=== PATIENT | female | born 1940 | race Caucasian/White ===

== ENCOUNTER → 2017-06-25 09:03 | Outpatient (CLI) | payer MEDICARE, BC, SELFPAY ==
[2017-06-25 10:42] LABS: Vitamin D,25 Hydroxy 28.6 ng/mL (29.95-100.01)
[2017-06-25 11:16] LABS: ALB/GLOB Ratio 0.7 RATIO (0.9-2.4); AST(SGOT) 20 U/L (15-37); Alanine Aminotransfer ALT/SGPT 17 U/L (13-56); Albumin, Serum 3.3 g/dL (3.2-5.0); Alkaline Phosphatase 60 U/L (45-117); Anion Gap 9 (5-15); BUN 12 mg/dL (7-18); BUN/Creat Ratio 14.5 RATIO (10-20); Calcium,Total 8.7 mg/dL (8.5-10.1); Chloride 107 mmol/L (98-107); Creatinine, Serum 0.82 mg/dL (0.55-1.02); EST Glomerular Filtration Rate 71 mL/min (>60); Est Glom Filt Rate - Afr Amer 86 mL/min (>60); Glucose 92 mg/dL (74-106); Protein, Total 8.3 g/dL (6.4-8.2); Sodium Level 139 mmol/L (136-145); T4 Free Direct 1.05 ng/dL (0.76-1.46); Thyroid Stim Hormone (TSH) 0.96 uIU/mL (0.358-3.74)
== END ==
PROVIDERS: Family Provider Family Medicine; PCP Family Medicine; Visit Provider Family Medicine
DX: E78.00 Pure hypercholesterolemia, unspecified (principal); E03.9 Hypothyroidism, unspecified; E55.9 Vitamin D deficiency, unspecified
CPT/HCPCS: 36415; 80053; 82306; 84439; 84443

== ENCOUNTER → 2018-01-18 09:19 | Outpatient (CLI) | payer MEDICARE, BC, SELFPAY ==
[2018-01-18 10:35] LABS: Anion Gap 8 (5-15); BUN 13 mg/dL (7-18); BUN/Creat Ratio 15.5 RATIO (10-20); Calcium,Total 8.7 mg/dL (8.5-10.1); Chloride 107 mmol/L (98-107); Cholesterol 187 mg/dL (200); Creatinine, Serum 0.84 mg/dL (0.55-1.02); EST Glomerular Filtration Rate 70 mL/min (>60); Est Glom Filt Rate - Afr Amer 85 mL/min (>60); Glucose 86 mg/dL (74-106); High Density Lipoprotein 57 mg/dL; Potassium 3.9 mmol/L (3.5-5.1); Sodium Level 141 mmol/L (136-145); Thyroid Stim Hormone (TSH) 0.76 uIU/mL (0.358-3.74); Triglycerides 108 mg/dL; Very Low Density Lipoprotein 22 mg/dL (5-40)
== END ==
PROVIDERS: Family Provider Family Medicine; PCP Family Medicine; Visit Provider Family Medicine
DX: E03.9 Hypothyroidism, unspecified (principal); E78.00 Pure hypercholesterolemia, unspecified; F03.90 Unspecified dementia, unspecified severity, without behavioral disturbance, psychotic disturbance, mood disturbance, and anxiety
CPT/HCPCS: 36415; 80048; 80061; 84443

== ENCOUNTER → 2018-09-26 08:05 | Outpatient (CLI) | payer MEDICARE, BC, SELFPAY ==
[2018-09-26 10:10] LABS: Hematocrit 41.9 % (37-47); Hemoglobin 13.3 g/dl (12.0-15.0); Mean Corp Hgb Conc 31.7 g/gl (32-36); Mean Corpuscular Hgb 27.8 pg (27.0-32.0); Mean Corpuscular Volume 87.7 fL (81-99); Mean Platelet Vol. 10.9 fl (6.2-12.0); Platelet Count 272 K/mm3 (150-450); RBC Distribution Width CV 15.9 % (11.6-14.6); RBC Distribution Width SD 51.4 fl (35.1-43.9); Red Blood Count 4.78 M/mm3 (4.2-5.4); White Blood Count 5.4 K/mm3 (4.4-11.0)
[2018-09-26 10:12] LABS: Scan Indicated on CBC? Y/N NO
[2018-09-26 10:40] LABS: Anion Gap 5 (5-15); BUN 11 mg/dL (7-18); BUN/Creat Ratio 13.2 RATIO (10-20); Calcium,Total 8.8 mg/dL (8.5-10.1); Chloride 106 mmol/L (98-107); Creatinine, Serum 0.84 mg/dL (0.55-1.02); EST Glomerular Filtration Rate 70 mL/min (>60); Est Glom Filt Rate - Afr Amer 85 mL/min (>60); Glucose 79 mg/dL (74-106); Potassium 4.4 mmol/L (3.5-5.1); Sodium Level 138 mmol/L (136-145); Thyroid Stim Hormone (TSH) 1.16 uIU/mL (0.358-3.74)
== END ==
PROVIDERS: Family Provider Family Medicine; PCP Family Medicine; Referring Provider Family Medicine; Visit Provider Family Medicine
DX: E03.9 Hypothyroidism, unspecified (principal); K21.9 Gastro-esophageal reflux disease without esophagitis; F03.90 Unspecified dementia, unspecified severity, without behavioral disturbance, psychotic disturbance, mood disturbance, and anxiety
CPT/HCPCS: 36415; 80048; 84443; 85027

== ENCOUNTER → 2018-11-21 14:11 | Outpatient (CLI) | payer MEDICARE, BC, SELFPAY ==
--- NOTE | 2018-11-21 14:16 | BI_ITS ---
MAMMOGRAPHY - BILATERAL SCREENING REASON FOR EXAM: Female, 78 years old. Routine annual screening examination. PERTINENT HISTORY: Non-contributory. TECHNIQUE: Digital bilateral breast meryl (3D mammographic acquisition) in the CC and MLO projections. 2-D mediolateral oblique (MLO) and craniocaudad (CC) views of both breasts were obtained. CAD: Full Field Digital Mammography with Computer Added Detection was performed. COMPARISON: Comparison is made with prior study dated March 13, 2016 and February 24, 2015. FINDINGS: Breast Composition: There are scattered areas of fibroglandular density. There are no dominant masses or suspicious calcifications. No other significant abnormalities are identified. There has been no significant change since the prior study. BI/SCREEN MAMM (CAD) W/MERYL BILAT IMPRESSION: Stable bilateral screening mammogram. Yearly follow-up mammogram recommended. (A) ASSESSMENT CATEGORY: BIRADS Category 1: Negative. A letter regarding these results will be sent to the patient by the facility within 30 days. Approximately 10% of breast cancers are not detected by mammography. A normal mammogram should not delay biopsy of a clinically suspicious abnormality. [id number] Electronically Signed: Santiago Jean, at 8:23 EDT , Service support ,
--- NOTE | 2018-11-21 14:17 | BD_ITS ---
STUDY: DUAL ENERGY X-RAY ABSORPTIOMETRY / DXA REASON FOR EXAM: Female, 78 years old. The patient is postmenopausal. Loss of height. TECHNIQUE: Bone Mineral Density (BMD) measurements of lumbar spine and bilateral hips were obtained. COMPARISON: Comparison is made with prior study dated August 17, 2016. FINDINGS: Lumbar Spine (L1-L4): g/cm2 (1.272) / T-score (0.6) / Z-score (2.4) Findings are suggestive of normal bone density with a low fracture risk. Increased kyphosis. Left Femur Total: g/cm2 (0.740) / T-score (-2.1) / Z-score (-0.1) Left Femoral Neck: g/cm2 (0.790) / T-score (-1.8) / Z-score (0.3) Right Femur Total: g/cm2 (0.756) / T-score (-2.0) / Z-score (0.0) Right Femoral Neck: g/cm2 (0.801) / T-score (-1.7) / Z-score (0.4) The T-Scores on the most recent prior examination were: Lumbar Spine (L1-L4): There has been worsening of bone density since the previous examination. Left Femur Total: which represents a worsening of 6.7%. Right Femur Total: which represents a worsening of 9.8%. BD/Dexa Bone Density Study IMPRESSION: The patient is considered osteopenic as outlined below according to World Brad Organization (WHO) criteria with a high fracture risk. There has been worsening of bone density since the previous examination. Reference Information: The T-score is the number of standard deviations above or below the standard which is normal for young adults at their peak bone mineral density. The World Health Organization (WHO) interprets the T-scores as follows: Above -1 Normal bone density Between -1 and -2.5 Osteopenia Equal to / or below -2.5 Osteoporosis As a practical clinical guideline, osteopenia may be graded as follows: Mild -1 through -1.5 Moderate -1.6 through -2.0 Severe -2.1 through -2.4 The Z-score is the number of standard deviations above or below age-matched controls. A Z-score of less than -1.5 would be considered abnormal. References: 1. NIH Osteoporosis and Related Bone Diseases http://www.osteo.org 2. International Society for Clinical Densitometry http://www.iscd.org 3. National Osteoporosis Foundation http://www.nof.org Electronically Signed: Santiago Jean, at 14:27 EDT , Service support ,
== END ==
PROVIDERS: Family Provider Family Medicine; PCP Family Medicine; Referring Provider Family Medicine; Visit Provider Family Medicine
DX: Z12.31 Encounter for screening mammogram for malignant neoplasm of breast (principal); Z78.0 Asymptomatic menopausal state; M81.0 Age-related osteoporosis without current pathological fracture
CPT/HCPCS: 77063; 77067; 77080

== ENCOUNTER → 2019-10-15 10:15 | Outpatient (CLI) | payer MEDICARE, BC, SELFPAY ==
[2019-03-14 15:22] VITALS: BMI 20.5
[2019-10-15 12:58] LABS: Vitamin D,25 Hydroxy 88.4 ng/mL
[2019-10-15 13:02] LABS: Anion Gap 5 (5-15); BUN 12 mg/dL (7-18); BUN/Creat Ratio 14.6 RATIO (10-20); Calcium,Total 9.4 mg/dL (8.5-10.1); Chloride 106 mmol/L (98-107); Cholesterol 212 mg/dL (200); Creatinine, Serum 0.82 mg/dL (0.55-1.02); EST Glomerular Filtration Rate 71 mL/min (>60); Est Glom Filt Rate - Afr Amer 86 mL/min (>60); Glucose 87 mg/dL (74-106); High Density Lipoprotein 54 mg/dL; Sodium Level 139 mmol/L (136-145); Thyroid Stim Hormone (TSH) 0.97 uIU/mL (0.358-3.74); Triglycerides 117 mg/dL; Very Low Density Lipoprotein 23 mg/dL (5-40)
== END ==
PROVIDERS: PCP Family Medicine; Visit Provider Family Medicine
DX: E78.00 Pure hypercholesterolemia, unspecified (principal); E03.9 Hypothyroidism, unspecified; E55.9 Vitamin D deficiency, unspecified; M81.0 Age-related osteoporosis without current pathological fracture
CPT/HCPCS: 36415; 80048; 80061; 82306; 84443

== ENCOUNTER → 2020-04-08 09:25 | Outpatient (CLI) | payer MEDICARE, BC, SELFPAY ==
[2019-03-14 15:22] VITALS: BMI 20.5
[2020-04-08 11:12] LABS: PTHIN 33.9 pg/mL (18.4-80.1)
[2020-04-08 11:16] LABS: Vitamin D,25 Hydroxy 71.6 ng/mL
[2020-04-08 11:21] LABS: ALB/GLOB Ratio 0.7 RATIO (0.9-2.4); AST(SGOT) 11 U/L (15-37); Alanine Aminotransfer ALT/SGPT 16 U/L (13-56); Albumin, Serum 3.6 g/dL (3.2-5.0); Alkaline Phosphatase 75 U/L (45-117); Anion Gap 6 (5-15); BUN 14 mg/dL (7-18); BUN/Creat Ratio 16.3 RATIO (10-20); Calcium,Total 9.5 mg/dL (8.5-10.1); Chloride 105 mmol/L (98-107); Cholesterol 204 mg/dL (200); Creatinine, Serum 0.86 mg/dL (0.55-1.02); EST Glomerular Filtration Rate 67 mL/min (>60); Est Glom Filt Rate - Afr Amer 81 mL/min (>60); Glucose 88 mg/dL (74-106); High Density Lipoprotein 54 mg/dL; Magnesium 2.3 mg/dL (1.6-2.6); Phosphorus 3.4 mg/dL (2.5-4.9); Protein, Total 8.6 g/dL (6.4-8.2); Sodium Level 139 mmol/L (136-145); Thyroid Stim Hormone (TSH) 1.42 uIU/mL (0.358-3.74); Triglycerides 120 mg/dL; Very Low Density Lipoprotein 24 mg/dL (5-40)
== END ==
PROVIDERS: PCP Family Medicine; Referring Provider Family Medicine; Visit Provider Family Medicine
DX: M81.0 Age-related osteoporosis without current pathological fracture (principal); E78.00 Pure hypercholesterolemia, unspecified; E03.9 Hypothyroidism, unspecified; E55.9 Vitamin D deficiency, unspecified
CPT/HCPCS: 36415; 80053; 80061; 82306; 82330; 83735; 83970; 84100; 84443

== ENCOUNTER → 2020-04-14 09:04 | Outpatient (CLI) | payer MEDICARE, BC, SELFPAY ==
[2019-03-14 15:22] VITALS: BMI 20.5
== END ==
PROVIDERS: PCP Family Medicine; Referring Provider Family Medicine; Visit Provider Family Medicine
DX: E88.09 Other disorders of plasma-protein metabolism, not elsewhere classified (principal)
CPT/HCPCS: 36415; 84165; 84166

== ENCOUNTER → 2020-05-03 | Outpatient (CLI) | payer MEDICARE, BC, SELFPAY ==
[2019-03-14 15:22] VITALS: BMI 20.5
[2020-05-05 16:09] LABS: PROELU- Albumin, Urine 43.5 % (.); PROELU- Alpha-1-Globulin,Ur 4.9 % (.); PROELU- Alpha-2-Globulin,Ur 12.3 % (.); PROELU- Beta Globulin, Ur 21.9 % (.); PROELU- Gamma Globulin, Ur 17.4 % (.); Total Protein, Ur 7.3 mg/dL (Not Estab.)
== END | disposition home or self-care (01) ==
LOC: LABSPEC 10:20
PROVIDERS: PCP Family Medicine; Referring Provider Family Medicine; Visit Provider Family Medicine
DX: R77.9 Abnormality of plasma protein, unspecified (principal)
CPT/HCPCS: 84166

== ENCOUNTER → 2020-11-23 10:28 | Outpatient (CLI) | payer MEDICARE, BC, SELFPAY ==
[2019-03-14 15:22] VITALS: BMI 20.5
--- NOTE | 2020-11-23 10:35 | BD_ITS ---
STUDY: DUAL ENERGY X-RAY ABSORPTIOMETRY / DXA REASON FOR EXAM: Female, 80 years old. [id number]. Patient is postmenopausal. TECHNIQUE: Bone Mineral Density (BMD) measurements of lumbar spine and bilateral hips were obtained. COMPARISON: Comparison is made with prior examination 11/21/2018. FINDINGS: Lumbar Spine (L1-L4): g/cm2 (0.956) / T-score (-0.8) / Z-score (1.9) Findings are suggestive of normal bone density with a low fracture risk. Left Femur Total: g/cm2 (0.658) / T-score (-2.3) / Z-score (-0.2) Left Femoral Neck: g/cm2 (0.593) / T-score (-2.3) / Z-score (0.1) Right Femur Total: g/cm2 (0.659) / T-score (-2.3) / Z-score (-0.2) Right Femoral Neck: g/cm2 (0.624) / T-score (-2.0) / Z-score (0.3) The T-Scores on the most recent prior examination were: Lumbar Spine (L1-L4): There has been worsening of bone density since the previous examination. Left Femur Total: which represents a worsening of 3.4%. Right Femur Total: which represents a worsening of 5.5%. BD/Dexa Bone Density Study IMPRESSION: The patient is considered osteopenic as outlined below according to World Brad Organization (WHO) criteria with a high fracture risk. There has been worsening of bone density since the previous examination. Reference Information: The T-score is the number of standard deviations above or below the standard which is normal for young adults at their peak bone mineral density. The World Health Organization (WHO) interprets the T-scores as follows: Above -1 Normal bone density Between -1 and -2.5 Osteopenia Equal to / or below -2.5 Osteoporosis As a practical clinical guideline, osteopenia may be graded as follows: Mild -1 through -1.5 Moderate -1.6 through -2.0 Severe -2.1 through -2.4 The Z-score is the number of standard deviations above or below age-matched controls. A Z-score of less than -1.5 would be considered abnormal. References: 1. NIH Osteoporosis and Related Bone Diseases www osteo.org 2. International Society for Clinical Densitometry www iscd.org 3. National Osteoporosis Foundation www nof.org Electronically Signed: Santiago Jean MD at 10:04 EDT , Service support ,
== END ==
PROVIDERS: PCP Family Medicine; Visit Provider Family Medicine
DX: M80.08XA Age-related osteoporosis with current pathological fracture, vertebra(e), initial encounter for fracture (principal); Z78.0 Asymptomatic menopausal state
CPT/HCPCS: 77080

== ENCOUNTER → 2021-04-19 09:20 | Outpatient (CLI) | payer MEDICARE, BC, SELFPAY ==
[2021-04-19 12:50] LABS: PTHIN 32.4 pg/mL (18.4-80.1)
[2021-04-19 12:53] LABS: Vitamin D,25 Hydroxy 76.1 ng/mL
[2021-04-19 13:04] LABS: Anion Gap 9 (5-15); BUN 14 mg/dL (7-18); BUN/Creat Ratio 17.5 RATIO (10-20); Calcium,Total 9.4 mg/dL (8.5-10.1); Chloride 102 mmol/L (98-107); EST Glomerular Filtration Rate 73 mL/min (>60); Est Glom Filt Rate - Afr Amer 88 mL/min (>60); Glucose 92 mg/dL (74-106); Magnesium 2.6 mg/dL (1.6-2.6); Phosphorus 2.9 mg/dL (2.5-4.9); Potassium 4.4 mmol/L (3.5-5.1); Sodium Level 136 mmol/L (136-145); Thyroid Stim Hormone (TSH) 0.91 uIU/mL (0.358-3.74)
== END ==
PROVIDERS: PCP Family Medicine; Visit Provider Family Medicine
DX: M80.08XA Age-related osteoporosis with current pathological fracture, vertebra(e), initial encounter for fracture (principal)
CPT/HCPCS: 36415; 80048; 82306; 83735; 83970; 84100; 84443

== ENCOUNTER → 2021-10-25 | Outpatient (CLI) | payer MEDICARE, BC, SELFPAY ==
[2021-10-25 12:47] LABS: Anion Gap 4 (5-15); BUN 15 mg/dL (7-18); Calcium,Total 9.1 mg/dL (8.5-10.1); Chloride 102 mmol/L (98-107); Cholesterol 197 mg/dL (200); Creatinine, Serum 0.88 mg/dL (0.55-1.02); EST Glomerular Filtration Rate 65 mL/min (>60); Est Glom Filt Rate - Afr Amer 79 mL/min (>60); Glucose 116 mg/dL (74-106); High Density Lipoprotein 55 mg/dL; Potassium 4.3 mmol/L (3.5-5.1); Sodium Level 136 mmol/L (136-145); Thyroid Stim Hormone (TSH) 1.01 uIU/mL (0.358-3.74); Triglycerides 103 mg/dL; Very Low Density Lipoprotein 21 mg/dL (5-40)
[2021-10-25 12:50] LABS: Vitamin D,25 Hydroxy 75.3 ng/mL
== END | disposition home or self-care (01) ==
LOC: MFPLAB 10:14
PROVIDERS: PCP Family Medicine; Visit Provider Family Medicine
DX: F03.90 Unspecified dementia, unspecified severity, without behavioral disturbance, psychotic disturbance, mood disturbance, and anxiety (principal); M80.08XA Age-related osteoporosis with current pathological fracture, vertebra(e), initial encounter for fracture; X58.XXXA Exposure to other specified factors, initial encounter; E78.00 Pure hypercholesterolemia, unspecified; E03.9 Hypothyroidism, unspecified
CPT/HCPCS: 36415; 80048; 80061; 82306; 84443

== ENCOUNTER → 2022-05-23 | Outpatient (CLI) | payer MEDICARE, BC, SELFPAY ==
[2022-05-23 15:50] LABS: Mucous, Urine 0 SEEN /hpf (<or=2+); Red Blood Cells-Urine 0 SEEN /hpf (0-5); Squamous Epithelial Cells - UA 0 SEEN /hpf (5-10)
[2022-05-23 18:32] LABS: Color, Urine Yellow (Yellow); Glucose, Dipstick Normal (Normal); Ketone-Dipstick Negative (Negative); Leukocyte Esterase-Dipstick 500 /ul (Negative); Nitrite-Dipstick Negative (Negative); Occult Blood-Urine 50 /ul (Negative); Protein-Dipstick 30 mg/dl (Negative); Specific Gravity, Urine 1.025 (1.002-1.030); Urine Bilirubin Dipstick Negative (Negative); Urine Clarity Cloudy (Clear); Urine Urobilinogen Normal (Normal)
[2022-05-23 18:59] LABS: White Blood Cells >100 SEEN /hpf (0-5)
[2022-05-23 19:00] LABS: Bacteria 2+ /hpf (None Seen)
== END | disposition home or self-care (01) ==
LOC: MFPLAB 15:14 → LABSPEC 15:14
PROVIDERS: PCP Family Medicine; Referring Provider Family Medicine; Visit Provider Family Medicine
DX: R30.0 Dysuria (principal)
CPT/HCPCS: 81001; 87077; 87086; 87088; 87186

== ENCOUNTER 2023-01-24 19:12 | Emergency (ER) | payer MEDICARE, BC, SELFPAY ==
[2023-01-24 19:13] VITALS: BP 131/63; PULSE 83; RESP 23; TEMP 36.3; O2SAT 94; BMI 15.3
[2023-01-24 19:21] VITALS: BP 131/63; PULSE 88; RESP 25; O2SAT 95
--- NOTE | 2023-01-24 20:05 | EDS_ITS ---
HPI History of Present Illness Chief Complaint: Chest Pain Informant: patient and spouse/S.O. Onset/Context/Timing Onset: Today Activity at onset: gradual Timing: Intermittent Quality: Positive for Heaviness Location: Substernal Worsened By: Nothing Relieved By: Nothing Associated Symptoms: Positive for Dyspnea; Negative for Nausea, Vomiting, Diaphoresis, Cough, Fever, Lightheadedness, Acid Reflux or Palpitations Narrative Narrative: Patient presents with chest pain that began today. Patient has a history of dementia and is a poor informant. states patient was complaining of pain in her chest that felt more like a heaviness and pressure. states the patient reported that it felt like someone was sitting on her chest. Currently, patient denies any pain or pressure. states patient did have some shortness of breath when this was occurring. Patient denies any nausea or vomiting. Patient denies any diaphoresis. Patient denies any cough or fevers. states that he gave the patient Laura that had aspirin and it and her pain got better after this. CVD Risk Factors: Negative for Hypertension, Diabetes, Hypercholesterolemia, Family History 1' </=55 or Smoking PE Risk Factors: Negative for Recent Travel/Surgery, Recent Immobilization, Prior DVT or PE, Cancer or OCP + Smoking + >/=35 PFSH PFSH Medical History (Updated 01/24/23 @ 23:[address] Vince Ronquillo DO) Dementia Hypothyroidism Medical History no medical history Home Medications ezetimibe 10 mg tablet (Zetia) 10 mg PO DAILY CHOLESTOROL 07/08/16 [History Last Taken Unknown] levothyroxine 75 mcg tablet (Synthroid) 40 mcg PO TUTHSA THYROID 07/08/16 [History Last Taken Unknown] levothyroxine 75 mcg tablet (Synthroid) 75 mcg PO SUMOWEFR THYROID 07/08/16 [History Last Taken Unknown] Allergy/AdvReac Type Severity Reaction Status Date / Time No Known Allergies Allergy Verified 03/14/19 15:22 Social History Smoking Status: Never smoker ROS ROS ED Constitutional Constitutional ED: Denies chills or fever(s) Eyes Eyes: Denies blurry vision or change in vision ENT ENT ED: Denies rhinorrhea or sore throat Cardiovascular Cardiovascular: Reports chest pain; Denies palpitations Respiratory/Chest Respiratory/Chest: Reports dyspnea; Denies cough Gastrointestinal Gastrointestinal: Denies abdominal pain, nausea or vomiting Genitourinary Genitourinary ED: Denies dysuria or hematuria Musculoskeletal Musculoskeletal: Denies back pain or neck pain Integumentary Denies abscess or rash Neurologic Neurologic: Denies headache(s) or weakness Allergic/Immunologic Allergic/Immunologic ED: Denies mouth swelling or urticaria EXAM Physical Exam Const Vital Signs: 01/24/23 19:13 01/24/23 19:13 01/24/23 19:21 Temperature 97.3 F L Temperature Source Temporal Pulse Rate 83 88 Respiratory Rate 23 H 25 H Respiratory Effort Normal Blood Pressure 131/63 H 131/63 H Blood Pressure Mean 85 85 Pulse Ox 94 95 Oxygen Delivery Method Room Air Room Air 01/24/23 20:36 01/24/23 20:36 01/24/23 21:21 Temperature Temperature Source Pulse Rate 96 94 Respiratory Rate 25 H 16 Respiratory Effort Blood Pressure 134/76 H 132/104 H Blood Pressure Mean 95 113 Pulse Ox 92 92 96 Oxygen Delivery Method Room Air Room Air Room Air 01/24/23 22:57 Temperature Temperature Source Pulse Rate 99 Respiratory Rate 22 H Respiratory Effort Blood Pressure 112/66 Blood Pressure Mean 81 Pulse Ox 95 Oxygen Delivery Method Room Air Positive well nourished and well developed General Appearance ED: well developed and NAD HEENT normocephalic and atraumatic Eyes PERRL and EOMs intact bilaterally Neck supple and no JVD Chest Wall palpation of chest normal Resp normal respiratory effort and clear to auscultation bilaterally Effort and Inspection: Negative for respiratory distress Cardio regular rate and regular rhythm GI normal to inspection, nondistended, normoactive bowel sounds, soft to palpation, non-tender and non-distended Extremity normal to inspection General Extremety ED: Negative for edema or tenderness General Extremity: Negative for edema Neuro CN's II-XII intact bilaterally and no sensory deficits noted Sensorium / Orientation: awake and alert Motor Exam: strength 5/5 throughout Psych mental status grossly normal Heart Score History: Slightly/Non-Suspicious ECG: Nonspecific Repolarization Age: >/= 65 years Risk Factors: No Risk Factors Troponin: </= Normal Limit Score: 3 MDM MDM MDM Narrative Medical decision making narrative: Differential diagnosis includes cardiac dysrhythmia, cardiac ischemia, pneumonia, electrolyte abnormality, anemia, GERD, and anxiety. EKG will be obtained to assess for cardiac dysrhythmia and cardiac ischemia. Chest x-ray will be obtained to assess for pneumonia. CBC will be obtained to assess for leukocytosis and anemia. Basic metabolic profile will be obtained to assess for electrolyte abnormality and renal function. High-sensitivity troponin will be obtained to assess for cardiac ischemia. Patient has a Wells score of 0. I do not think that this is from a pulmonary embolism. Lab Data Attestation: I reviewed the patient's lab results. Lab results narrative: CBC was reviewed and was within normal limits. Basic metabolic profile was reviewed and was essentially within normal limits. High-sensitivity troponin was reviewed and was normal at 4. 2-hour repeat high-sensitivity troponin was reviewed and was normal at 5. Labs: Laboratory Results - last 24 hr 01/24/23 01/24/23 19:17 21:17 WBC 6.4 RBC 4.61 Hgb 13.2 Hct 42.8 MCV 92.8 MCH 28.6 MCHC 30.8 L RDW Std Deviation 51.8 H RDW Coeff of Caleb 15.2 H Plt Count 224 MPV 11.8 Immature Gran % (Auto) 0.300 Neut % (Auto) 56.7 Lymph % (Auto) 26.4 [place] % (Auto) 10.0 Eos % (Auto) 6.0 H Baso % (Auto) 0.6 Absolute Neuts (auto) 3.6 Absolute Lymphs (auto) 1.68 Nucleated RBC % 0 Sodium 138 Potassium 4.1 Chloride 104 Carbon Dioxide 32.0 Anion Gap 2 L BUN 21 H Creatinine 0.98 Estim Creat Clear Calc 27.88 Est GFR (MDRD) Af Amer 70 Est GFR (MDRD) Non-Af 58 L BUN/Creatinine Ratio 21.5 H Glucose 101 Calcium 9.2 Troponin I High Sens 4 5 Radiography Diagnostic Testing: Clinical Impression(s) from Imaging Studies Chest X-Ray 01/24/23 20:20 IMPRESSION: Low lung volumes with known chronic lung disease. Hazy opacity at the left lung base could be associated with the chronic lung disease or be infectious/inflammatory in nature. Electronically Signed: Pedro Gordillo MD at 20:45 EDT , Portable 1 view chest x-ray was obtained. On my independent interpretation, lung camacho show a hazy opacity in the left lung base which could be chronic or inflammatory. There is normal cardiac silhouette. Bony thorax is normal. There is no acute process noted. Radiologist also interpreted the x-ray and agrees. EKG Initial EKG: Attestation: I personally reviewed and interpreted this EKG as follows: Interpretation: Sinus Rhythm (With occasional PVCs with a rate of 88) and Non-Specific ST Changes Comments: EKG was obtained. On my independent interpretation, it showed a normal sinus rhythm with occasional PVCs with a rate of 88. OK interval, QRS interval, and QTc intervals were all normal. [place] was borderline at -21. There are nonspecific ST-T wave changes. Prior EKG tracings: not available for review Prior: No Prior Follow-up EKG: Attestation: I personally reviewed and interpreted this EKG as follows: Interpretation: Sinus Rhythm (With frequent PVCs with a rate of 91) and Non-Specific ST Changes Comments: EKG was obtained. On my independent interpretation, it showed a normal sinus rhythm with frequent PVCs with a rate of 91. OK interval, QRS interval, and QTc intervals were all normal. There is borderline left axis deviation at -23. There are nonspecific ST-T wave changes. Prior EKG tracings: available for review Prior: Unchanged Treatment and Re-Evaluation :: Patient was given aspirin here. Patient family were advised of her findings. Patient has a HEART score of 3. Patient and family were advised that this is low risk for acute cardiac event. Patient and family were advised to follow-up with the patient's primary care physician in 5 to 7 days. Patient and family understood and were agreeable with the plan. All questions were answered. Discharge Plan Triage Chief Complaint: Chest Pain ED Provider: Vince Ronquillo Dx/Rx/DC Orders Clinical Impression: Chest pain of uncertain etiology, Dementia, Hypothyroidism Instructions: ED Chest Pain, Uncertain Cause Prescriptions: No Action levothyroxine [Synthroid] 75 MCG tablet 75 mcg PO SUMOWEFR Patient Comments: take 1 tablet by mouth sunday, sunday, sunday, and sunday levothyroxine [Synthroid] 75 MCG tablet 40 mcg PO TUTHSA Patient Comments: ezetimibe [Zetia] 10 MG tablet 10 mg PO DAILY Patient Comments: TAKE ONE TABLET BY MOUTH EVERY DAY Primary Care Provider: New Danielle Referrals: New Danielle MD [Primary Care Provider] - 5-7 Days Disposition Disposition: Home, Self Care
--- NOTE | 2023-01-24 20:13 | EKG12_ITS ---
Test Reason : CP Blood Pressure : / mmHG Vent. Rate : 088 BPM Atrial Rate : 088 BPM P-R Int : 164 ms QRS Dur : 078 ms QT Int : 394 ms P-R-T Axes : 038 -21 006 degrees QTc Int : 476 ms Sinus rhythm with frequent Premature ventricular complexes Cannot rule out Anterior infarct , age undetermined Abnormal ECG Confirmed by ANABEL PETER, VALDEZ ([id number]), purchasing expeditor JUSTIN SUN ([id number]) on 01/30/2023 12:31:43 PM Referred By: KAREN Confirmed By:VALDEZ LITTLE MD
--- NOTE | 2023-01-24 20:20 | RAD_ITS ---
INDICATION: chest pain EXAMINATION/TECHNIQUE: X-RAY - XR Chest 1 View COMPARISON: Prior study dated: CT from 09/28/2016 FINDINGS: LINES/DEVICES: Cardiac leads overlie the chest. LUNGS: Low lung volumes. Hazy opacity at the left lung base. Chronic changes are seen at the periphery of the upper lungs consistent with known chronic lung disease. No pleural effusion or pneumothorax. MEDIASTINUM AND CARDIOVASCULAR STRUCTURES: Cardiac silhouette not enlarged. Central airways and mediastinal contour are unremarkable. BONES AND SOFT TISSUES: Unremarkable. RAD/Chest 1 View (Portable) IMPRESSION: Low lung volumes with known chronic lung disease. Hazy opacity at the left lung base could be associated with the chronic lung disease or be infectious/inflammatory in nature. Electronically Signed: Pedro Gordillo MD at 20:45 EDT ,
--- NOTE | 2023-01-24 20:29 | EKG12_ITS ---
Test Reason : DYSRHYTHMIA Blood Pressure : / mmHG Vent. Rate : 091 BPM Atrial Rate : 091 BPM P-R Int : 170 ms QRS Dur : 082 ms QT Int : 382 ms P-R-T Axes : 029 -23 -01 degrees QTc Int : 469 ms Sinus rhythm with frequent Premature ventricular complexes Possible Anterior infarct , age undetermined Abnormal ECG When compared with ECG of 24-JAN-2023 19:21, MANUAL COMPARISON REQUIRED, DATA IS UNCONFIRMED Confirmed by ANABEL PETER, VALDEZ ([id number]), news copy editor TAMIKO VELAZQUEZ ([id number]) on 02/05/2023 1:57:35 PM Referred By: KAREN Confirmed By:VALDEZ LITTLE MD
[2023-01-24 20:36] VITALS: BP 134/76; PULSE 96; RESP 25; O2SAT 92
[2023-01-24 20:39] LABS: Absolute Lymphocyte Count 1.68 X10^3/uL (0.83-4.51); Absolute Neutrophil Count 3.6 X10^3/uL (2.0-7.7); Basophil# 0.04 X10^3/uL; Basophil% 0.6 % (0-1); Eosinophil# 0.38 X10^3/uL; Hematocrit 42.8 % (37-47); Hemoglobin 13.2 g/dL (12.0-15.0); Lymphocyte # 1.68 X10^3/ul (0.83-4.51); Lymphocyte % 26.4 % (19-41); Mean Corp Hgb Conc 30.8 g/dL (32-36); Mean Corpuscular Hgb 28.6 pg (27.0-32.0); Mean Corpuscular Volume 92.8 fL (81-99); Mean Platelet Vol. 11.8 fl (6.2-12.0); Monocyte# 0.64 X10^3/uL; NRBC Flagged by Analyzer 0 % (0-5); Neutrophil # 3.61 X10^3/uL (2.7-7.7); Neutrophil % 56.7 % (47-70); Platelet Count 224 K/mm3 (150-450); RBC Distribution Width CV 15.2 % (11.6-14.6); RBC Distribution Width SD 51.8 fl (35.1-43.9); Red Blood Count 4.61 M/mm3 (4.2-5.4); White Blood Count 6.4 K/mm3 (4.4-11.0)
[2023-01-24 20:44] LABS: Anion Gap 2 (5-15); BUN 21 mg/dL (7-18); BUN/Creat Ratio 21.5 RATIO (10-20); Calcium,Total 9.2 mg/dL (8.5-10.1); Chloride 104 mmol/L (98-107); Creatinine, Serum 0.98 mg/dL (0.55-1.02); EST Glomerular Filtration Rate 58 mL/min (>60); Est Glom Filt Rate - Afr Amer 70 mL/min (>60); Estimated Creatinine Clearance 27.88 ml/min; Glucose 101 mg/dL (74-106); Potassium 4.1 mmol/L (3.5-5.1); Sodium Level 138 mmol/L (136-145); Troponin-I HS (w/2H Reflex) 4 pg/mL (3.0-54.0)
[2023-01-24 21:21] VITALS: BP 132/104; PULSE 94; RESP 16; O2SAT 96
[2023-01-24 22:20] LABS: Reflex Troponin-HS? (from REC) Y
[2023-01-24 22:52] LABS: Troponin-I HS 5 pg/mL (3.0-54.0)
[2023-01-24 22:57] VITALS: BP 112/66; PULSE 99; RESP 22; O2SAT 95
[2023-01-24 23:45] VITALS: BP 112/66; PULSE 99; O2SAT 95
== END 2023-01-24 23:52 | disposition home or self-care (01) ==
PROVIDERS: Emergency Provider Emergency Medicine; PCP Family Medicine; Visit Provider Emergency Medicine
DX: R07.9 Chest pain, unspecified (principal); F03.90 Unspecified dementia, unspecified severity, without behavioral disturbance, psychotic disturbance, mood disturbance, and anxiety; E03.9 Hypothyroidism, unspecified; Z79.899 Other long term (current) drug therapy
CPT/HCPCS: 71045; 80048; 84484; 85025; 93005; 99285; A4216

== ENCOUNTER → 2023-04-03 | Outpatient (CLI) | payer MEDICARE, BC, SELFPAY ==
[2023-04-03 18:24] LABS: Thyroid Stim Hormone (TSH) 0.99 uIU/mL (0.358-3.74)
== END | disposition home or self-care (01) ==
LOC: MFPLAB 14:00
PROVIDERS: PCP Family Medicine; Visit Provider Family Medicine
DX: N39.0 Urinary tract infection, site not specified (principal); F03.90 Unspecified dementia, unspecified severity, without behavioral disturbance, psychotic disturbance, mood disturbance, and anxiety; E03.9 Hypothyroidism, unspecified; E55.9 Vitamin D deficiency, unspecified
CPT/HCPCS: 36415; 82306; 84443

== ENCOUNTER → 2023-04-30 | Outpatient (CLI) | payer MEDICARE, BC, SELFPAY ==
--- NOTE | 2023-04-30 | SKIN_PTH ---
PATHOLOGY RESULTS PATIENT: PROSPER BECKFORD LOC: [facility]#:[id number] AGE/SX: 83/F ROOM: RE04/30/[address]: Dr. Roberth Danielle MD : [id number] BED: DIS: 04/30/2023 SPEC #: [id number] RECD: 05/01/23 08:05 STATUS: MESERET AURE #: [id number] LAKEISHA: 04/30/23 00:[address]: Roberth Danielle DEPT: SURGICAL PATHOLOGY RECD BY: Dena Montana ENTERED: 05/01/23 08:06 SP TYPE: SKIN Tissues: Skin of eyelid, NOS Procedures: Surgery Specimen Level IV HEADER OPERATION: Right shave PRE-OP DIAGNOSIS: ? SCC TISSUE SUBMITTED: Right eye MICROSCOPIC DIAGNOSIS Right eye lesion, shave biopsy: Atypical squamous epithelial lesion extending up to the deep margin of the specimen. See comment. STELLA:dilia 05/02/2023 COMMENT Excision of the lesion is necessary for further classification of the lesion. Case has been reviewed in consultation with Dr. Snider who concurs with the above diagnosis. IDC:AM MICROSCOPIC DESCRIPTION Slides are reviewed. GROSS DESCRIPTION Received in fixative is one container labeled with the patient's name and designated right eye. The specimen consists of a piece of hurt-white skin measuring 0.5 x 0.5 x 0.1 cm. The specimen is inked, bisected and submitted entirely in one cassette. / SJ:rg 05/01/2023 TC:5 CPT: 61260
== END | disposition home or self-care (01) ==
PROVIDERS: PCP Family Medicine; Visit Provider Family Medicine
DX: L98.9 Disorder of the skin and subcutaneous tissue, unspecified (principal)
CPT/HCPCS: 88305

== ENCOUNTER → 2024-03-07 | Outpatient (CLI) | payer MEDICARE, BC, SELFPAY ==
[2024-03-07 15:43] LABS: Color, Urine Amber (Yellow); Glucose, Dipstick Normal (Normal); Ketone-Dipstick Negative (Negative); Leukocyte Esterase-Dipstick 500 /ul (Negative); Nitrite-Dipstick Negative (Negative); Occult Blood-Urine 10 /ul (Negative); Protein-Dipstick 15 mg/dl (Negative); Urine Bilirubin Dipstick Negative (Negative); Urine Clarity Cloudy (Clear); Urine Urobilinogen Normal (Normal)
[2024-03-07 15:55] LABS: Squamous Epithelial Cells - UA 5-10 SEEN /hpf (5-10); White Blood Cells 50-100 SEEN /hpf (0-5)
[2024-03-07 15:56] LABS: Bacteria 4+ /hpf (None Seen); Calcium Oxalate Crystals Ur 1+ /hpf (<or=2+); Hyaline Cast 0-5 SEEN /lpf (0-5); Mucous, Urine 1+ /hpf (<or=2+); Red Blood Cells-Urine 0-5 SEEN /hpf (0-5)
[2024-03-07 16:00] LABS: Renal Epithelial Cells 0-5 SEEN /hpf (0-5)
== END | disposition home or self-care (01) ==
LOC: LABSPEC 11:24
PROVIDERS: Family Medicine; PCP Family Medicine; Visit Provider Family Medicine
DX: R39.9 Unspecified symptoms and signs involving the genitourinary system (principal)
CPT/HCPCS: 81001; 87086; 87088; 87186

== ENCOUNTER 2024-09-02 22:41 | Emergency (ER) | payer MEDICARE, BC, SELFPAY ==
--- NOTE | 2024-09-02 00:15 | RAD_ITS ---
PROCEDURE: CHEST 1 VIEW (PORTABLE) 09/03/2024 REASON FOR EXAM: UNRESPONSIVE EPISODE TECHNIQUE: Frontal view of the chest. COMPARISON: 01/24/2023 FINDINGS: The lung volumes are again low with a background of bilateral chronic interstitial changes now within appearance of bilateral ill-defined opacities which may represent pulmonary edema with and inflammatory or infectious process not excluded. No evidence of pleural effusion seen. RAD/Chest 1 View (Portable) IMPRESSION: The lung volumes are again low with a background of bilateral chronic interstit ial changes now within appearance of bilateral ill-defined opacities which may represent pulmonary edema with an inflammatory or infectious process not excluded, clinically correlate. Reading Location: [id number]
[2024-09-02 22:42] VITALS: BP 117/84; PULSE 104; RESP 9; TEMP 36.5; O2SAT 90; O2SAT 91; BMI 19.9
[2024-09-02 22:43] VITALS: PULSE 70; RESP 16; O2SAT 88; O2SAT 98
--- NOTE | 2024-09-02 23:11 | EKG12_ITS ---
Test Reason : DYSRHYTHMIA Blood Pressure : */* mmHG Vent. Rate : 75 BPM Atrial Rate : 75 BPM P-R Int : 208 ms QRS Dur : 84 ms QT Int : 424 ms P-R-T Axes : 24 -26 -16 degrees QTcB Int : 473 ms Sinus rhythm with occasional Premature ventricular complexes Minimal voltage criteria for LVH, may be normal variant ( R in aVL ) Anterolateral infarct (cited on or before 24-Jan-2023) Abnormal ECG Confirmed by Michael Stokes ([id number]), image editor TAMIKO VELAZQUEZ ([id number]) on 09/04/2024 10:04:24 AM Referred By: Confirmed By: Michael Stokes
--- NOTE | 2024-09-02 23:12 | EDS_ITS ---
HPI History of Present Illness Chief Complaint: Mental Status Change Informant: spouse/S.O., family and EMS Narrative Narrative: 84-year-old female presenting to the emergency room with altered mental status. Patient has a history of dementia and cannot provide any meaningful contribution to the visit. The states that she seemed to be in her normal state of health. He states is not abnormal for her to go about 2 days without urinating. She has a history of an eye cancer that she sees [facility] for. He states that they recommended radiation but canceled that and she gets an infusion weekly. He states that typically she is dependent on him for all care including feeding and trips to the bathroom. He states that she had a bowel movement this afternoon. He religiously cleans her and has not noticed any bedsores. No fevers vomiting or diarrhea. He does note a slight rhinorrhea recently. He states that tonight she was sleeping in her chair which is normal for her. He went to go see make sure she had enough blankets on And noticed that she was not responsive. He states that he called EMS after that. The notes that she was not pale or diaphoretic. She did not seem short of breath. Prehospital EKG demonstrates a sinus rhythm with PVC and PACs. Ventricular rate of [address] Mcqueen for primary care [facility] Medical History Squamous cell carcinoma of skin, unspecified Dementia Hypothyroidism Home Medications ?Medication ?Instructions ?Recorded ?Last Taken ?Type ezetimibe 10 mg tablet (Zetia) 10 mg PO DAILY CHOLESTO ROL 07/08/16 Unknown History levothyroxine 75 mcg tablet 40 mcg PO TUTHSA THYROID 0 07/08/16 Unknown History (Synthroid) levothyroxine 75 mcg tablet 75 mcg PO SUMOWEFR THYROID 07/08/16 Unknown History (Synthroid) aspirin 81 mg tablet,delayed 81 mg PO QDAY 01/02/24 Un known History release (Adult Low Dose Aspirin) mecobalamin (vitamin B12) 500 mcg mcg PO 01/07/24 Unkn own History chewable tablet Allergy/AdvReac Type Severity Reaction Status Date / Time No Known Allergies Allergy Verified 01/07/24 11:11 Social History Smoking Status: Never smoker alcohol intake: never ROS ROS ED Review of Systems ROS Unobtainable: due to mental status EXAM Physical Exam Const Vital Signs: 09/02/24 22:42 09/02/24 22:43 09/02/24 22:43 Temperature 97.7 F L Temperature Source Axillary Pulse Rate 104 H 70 Respiratory Rate 9 L 16 Blood Pressure 117/84 H Blood Pressure Mean 95 Pulse Ox 91 88 98 Oxygen Delivery Method Room Air Room Air Nasal Cannula Oxygen Flow Rate (L/min) 2 09/03/24 00:22 09/03/24 00:30 09/03/24 00:45 Temperature Temperature Source Pulse Rate 64 66 65 Respiratory Rate 18 15 18 Blood Pressure Blood Pressure Mean Pulse Ox 98 99 99 Oxygen Delivery Method Oxygen Flow Rate (L/min) 09/03/24 00:46 09/03/24 01:00 09/03/24 01:58 Temperature Temperature Source Pulse Rate 69 63 78 Respiratory Rate 22 H 18 22 H Blood Pressure 137/95 H 149/71 H Blood Pressure Mean 108 94 Pulse Ox 99 99 94 Oxygen Delivery Method Nasal Cannula Nasal Cannula Room Air Oxygen Flow Rate (L/min) 2 2 09/03/24 02:22 Temperature 98 F Temperature Source Pulse Rate 69 Respiratory Rate 21 H Blood Pressure 142/72 H Blood Pressure Mean 95 Pulse Ox 99 Oxygen Delivery Method Oxygen Flow Rate (L/min) Positive well nourished and well developed General Appearance ED: well developed and NAD HEENT Reports normocephalic, head/scalp atraumatic and moist mucous membranes Eyes PERRL and EOMs intact bilaterally Neck no lymphadenopathy, supple and no JVD Resp normal respiratory effort and clear to auscultation bilaterally Cardio regular rate, regular rhythm and no murmurs GI normal to inspection, nondistended, normoactive bowel sounds and non-tender Palpation: soft Back/Spine no CVA tenderness and normal ROM Back/Spine Narrative: Kyphosis noted Extremity normal to inspection General Extremety ED: Negative for edema General Extremity: Negative for edema Neuro Neuro Narrative: Patient response to touch otherwise seems to be sleeping. Sensorium / Orientation: alert Psych Psych Narrative: Unable to assess Skin no rashes or lesions noted and no wounds MDM MDM MDM Narrative Medical decision making narrative: Differential diagnosis includes pneumonia dehydration acute kidney injury electrolyte abnormalities UTI malignancy cardiac dysrhythmia Basic blood work was obtained. Urinalysis was obtained. These were essentially negative. 2 sets of cardiac enzymes were within normal limits. Lactic acid is normal at 1.5 and INR is 1.0. Urinalysis shows no overt infection. My independent trepidation of the chest x-ray is no acute process. CT of the brain was obtained read by radiology and reviewed by myself. I do not see any intracranial process at this time. Patient received IV fluids. I have not seen any cardiac dysrhythmias on the monitor. I spoke with the as well as the 2 sons. We talked about admitting her to the hospital versus taking her home. They are comfortable taking her home. As the states that he canceled the radiation he is willing to explore palliative care/hospice again. They were initially contacted but once they decided to seek treatment for the cancer around her eye they did not get enrolled. Family understands return instructions. History & Record Review Discussion w/independent historian: EMS personnel, Patient and Family Additional record(s) reviewed:: Prior ED visit and Prior labs Lab Data Attestation: I reviewed the patient's lab results. Labs: Laboratory Results - last 24 hr 09/02/24 09/02/24 09/02/24 22:55 22:55 23:30 WBC Cancelled Corrected WBC Cancelled RBC Cancelled Hgb Cancelled Hct Cancelled MCV Cancelled MCH Cancelled MCHC Cancelled RDW Std Deviation Cancelled RDW Coeff of Caleb Cancelled Plt Count Cancelled MPV Cancelled Immature Gran % (Auto) Cancelled Neut % (Auto) Cancelled Lymph % (Auto) Cancelled [place] % (Auto) Cancelled Eos % (Auto) Cancelled Baso % (Auto) Cancelled Absolute Neuts (auto) Cancelled Absolute Lymphs (auto) Cancelled Total Counted Cancelled Neutrophils % (Manual) Cancelled Band Neutrophils % Cancelled Lymphocytes % (Manual) Cancelled Monocytes % (Manual) Cancelled Eosinophils % (Manual) Cancelled Basophils % (Manual) Cancelled Metamyelocytes % Cancelled Myelocytes % Cancelled Promyelocytes % Cancelled Blast Cells % Cancelled Plasma Cell % (Manual) Cancelled Other Cells % Cancelled Nucleated RBC % Cancelled Nucleated RBCs/100 WBC Cancelled Differential Comment Cancelled Diff Path Review Cancelled Hypersegmented Neuts Cancelled Atypical Lymphocytes Cancelled Reactive Lymphocytes Cancelled Smudge Cells Cancelled Toxic Granulation Cancelled Toxic Vacuolation Cancelled Dohle Bodies Cancelled Mike Rods Cancelled Platelet Estimate Cancelled Plt Morphology Comment Cancelled RBC Morphology Cancelled Cancelled Polychromasia Cancelled Hypochromasia Cancelled Basophilic Stippling Cancelled Anisocytosis Cancelled Microcytosis Cancelled Macrocytosis Cancelled Spherocytes Cancelled Sickle Cells Cancelled Target Cells Cancelled Tear Drop Cells Cancelled Ovalocytes Cancelled Stomatocytes Cancelled [place] Bodies Cancelled Gavin Cells Cancelled Bite Cells Cancelled Crenated Cell Cancelled Acanthocytes (Spur) Cancelled Rouleaux Cancelled Schistocytes Cancelled PT INR APTT Sodium 141 Potassium 3.4 Chloride 105 Carbon Dioxide 25.6 Anion Gap 11 BUN 19 Creatinine 0.60 L Estim Creat Clear Calc 42.77 L Est GFR (MDRD) Non-Af 88 BUN/Creatinine Ratio 31.2 H Glucose 104 H Lactic Acid Calcium 9.2 Total Bilirubin 0.40 AST 18 ALT < 5 Alkaline Phosphatase 56 Troponin T High Sens 12 Troponin T Hi Sens 2 Hr Total Protein 7.3 Albumin 3.2 L Globulin 4.2 Albumin/Globulin Ratio 0.8 L Urine Color Yellow Urine Clarity Clear Urine pH 5.0 Ur Specific [place] 1.030 Urine Protein 15 H Urine Glucose (UA) Normal Urine Ketones Negative Urine Occult Blood Negative Urine Nitrite Negative Urine Bilirubin Negative Urine Urobilinogen Normal Ur Leukocyte Esterase Negative Urine RBC 0 SEEN Urine WBC 0 SEEN Ur Squamous Epith Cells 0-5 SEEN Urine Bacteria 0 SEEN Urine Mucus 0 SEEN 09/02/24 09/02/24 09/03/24 23:35 23:48 00:58 WBC 6.3 Corrected WBC RBC 4.10 L Hgb 12.2 Hct 38.0 MCV 92.7 MCH 29.8 MCHC 32.1 RDW Std Deviation 53.1 H RDW Coeff of Caleb 15.6 H Plt Count 164 MPV 11.9 Immature Gran % (Auto) 0.200 Neut % (Auto) 52.7 Lymph % (Auto) 28.6 [place] % (Auto) 10.9 H Eos % (Auto) 6.8 H Baso % (Auto) 0.8 Absolute Neuts (auto) 3.3 Absolute Lymphs (auto) 1.81 Total Counted Neutrophils % (Manual) Band Neutrophils % Lymphocytes % (Manual) Monocytes % (Manual) Eosinophils % (Manual) Basophils % (Manual) Metamyelocytes % Myelocytes % Promyelocytes % Blast Cells % Plasma Cell % (Manual) Other Cells % Nucleated RBC % 0 Nucleated RBCs/100 WBC Differential Comment Diff Path Review Hypersegmented Neuts Atypical Lymphocytes Reactive Lymphocytes Smudge Cells Toxic Granulation Toxic Vacuolation Dohle Bodies Mike Rods Platelet Estimate Plt Morphology Comment RBC Morphology Polychromasia Hypochromasia Basophilic Stippling Anisocytosis Microcytosis Macrocytosis Spherocytes Sickle Cells Target Cells Tear Drop Cells Ovalocytes Stomatocytes [place] Bodies Gavin Cells Bite Cells Crenated Cell Acanthocytes (Spur) Rouleaux Schistocytes PT 13.5 INR 1.0 APTT 29.9 Sodium Potassium Chloride Carbon Dioxide Anion Gap BUN Creatinine Estim Creat Clear Calc Est GFR (MDRD) Non-Af BUN/Creatinine Ratio Glucose Lactic Acid 1.5 Calcium Total Bilirubin AST ALT Alkaline Phosphatase Troponin T High Sens Troponin T Hi Sens 2 Hr 13 Total Protein Albumin Globulin Albumin/Globulin Ratio Urine Color Urine Clarity Urine pH Ur Specific [place] Urine Protein Urine Glucose (UA) Urine Ketones Urine Occult Blood Urine Nitrite Urine Bilirubin Urine Urobilinogen Ur Leukocyte Esterase Urine RBC Urine WBC Ur Squamous Epith Cells Urine Bacteria Urine Mucus Radiography Diagnostic Testing: Clinical Impression(s) from Imaging Studies Chest X-Ray 09/02/24 00:15 IMPRESSION: The lung volumes are again low with a background of bilateral chronic interstitial changes now within appearance of bilateral ill-defined opacities which may represent pulmonary edema with an inflammatory or infectious process not excluded, clinically correlate. Reading Location: [facility] Brain CT 09/03/24 00:10 IMPRESSION: No intracranial hemorrhage, mass effect or CT evidence of large vascular territory acute infarct. Age commensurate chronic and involutional changes. 3.1 x 2.6 cm lobular right medial periorbital/orbital appearing soft tissue mass with a punctate area of calcification for example axial 7, correlate with history. Reading Location: [facility] EKG Initial EKG: Attestation: I personally reviewed and interpreted this EKG as follows: Comments: Sinus rhythm with PVCs ventricular rate of 75 bpm Discharge Plan Triage Chief Complaint: Mental Status Change ED Provider: Noah Rajput Dx/Rx/DC Orders Clinical Impression: Episode of unresponsiveness, Dementia, Abnormal weight loss Prescriptions: No Action mecobalamin (vitamin B12) 500 mcg tablet,chewable PO aspirin [Adult Low Dose Aspirin] 81 mg tablet,delayed release (DR/EC) 81 mg PO QDAY levothyroxine [Synthroid] 75 MCG tablet 75 mcg PO SUMOWEFR Patient Comments: take 1 tablet by mouth sunday, sunday, sunday, and sunday levothyroxine [Synthroid] 75 MCG tablet 40 mcg PO TUTHSA Patient Comments: ezetimibe [Zetia] 10 MG tablet 10 mg PO DAILY Patient Comments: TAKE ONE TABLET BY MOUTH EVERY DAY Primary Care Provider: Roberth Danielle Referrals: Roberth Danielle MD [Primary Care Provider] - 3-5 Days Activity Restrictions/Additional Instructions: Please discuss with your oncologist that if there is nothing more that can be done for the tumor whether or not palliative care is again indicated. Please return to emergency if any concerns or worsening. Print Language: Tajik Disposition Disposition: Home, Self Care Discharge Date/Time: 09/03/24 02:35
[2024-09-02] MEDS: 0.9% Normal Saline (1000mL) 1,000 ML 1000 ML IV (23:15)
[2024-09-02 23:42] LABS: Troponin T High Sensitivity 12 ng/L (<=14)
[2024-09-02 23:43] LABS: ALB/GLOB Ratio 0.8 RATIO (0.9-2.4); AST(SGOT) 18 U/L (<=31); Alanine Aminotransfer ALT/SGPT < 5 U/L (<=34); Albumin, Serum 3.2 g/dL (3.4-4.8); Alkaline Phosphatase 56 U/L (35-104); Anion Gap 11 (5-15); BUN 19 mg/dL (4-19); BUN/Creat Ratio 31.2 RATIO (10-20); Calcium,Total 9.2 mg/dL (7.6-11.0); Carbon Dioxide 25.6 mmol/L (21.0-32.0); Chloride 105 mmol/L (98-108); EST Glomerular Filtration Rate 88 (>60); Estimated Creatinine Clearance 42.77 ml/min (50-250); Globulin 4.2 g/dL (2.2-4.2); Glucose 104 mg/dL (70-99); Potassium 3.4 mmol/L (3.3-5.1); Protein, Total 7.3 g/dL (5.9-8.4); Sodium Level 141 mmol/L (133-145)
[2024-09-02 23:43] LABS: Bacteria 0 SEEN /hpf (None Seen); Mucous, Urine 0 SEEN /hpf (<or=2+); Red Blood Cells-Urine 0 SEEN /hpf (0-5); White Blood Cells 0 SEEN /hpf (0-5)
[2024-09-02 23:47] LABS: Glucose, Dipstick Normal (Normal); Ketone-Dipstick Negative (Negative); Leukocyte Esterase-Dipstick Negative /ul (Negative); Nitrite-Dipstick Negative (Negative); Occult Blood-Urine Negative /ul (Negative); Protein-Dipstick 15 mg/dl (Negative); Urine Bilirubin Dipstick Negative (Negative); Urine Urobilinogen Normal (Normal)
[2024-09-02 23:54] LABS: Color, Urine Yellow (Yellow); Urine Clarity Clear (Clear)
[2024-09-02 23:55] LABS: Squamous Epithelial Cells - UA 0-5 SEEN /hpf (5-10)
[2024-09-03] VITALS (7 sets, daily range): BP systolic 137–149; BP diastolic 71–95; PULSE 63–78; RESP 15–22; TEMP 36.6; O2SAT 94–99
[2024-09-03 00:07] LABS: Lactic Acid 1.5 mmol/L (0.0-2.0)
--- NOTE | 2024-09-03 00:10 | CT_ITS ---
PROCEDURE: BRAIN/HEAD WITHOUT CONTRAST 09/03/2024 REASON FOR EXAM: AMS TECHNIQUE: Head CT without intravenous contrast. Coronal and Sagittal reconstruction series were provided. One or more dose reduction techniques were used (e.g., Automated exposure control, adjustment of the mA and/or kV according to patient size, use of iterative reconstruction technique. RADIATION DOSE SUMMARY: CTDlvol: 44.99 mGy DLP: 863.60 mGycm COMPARISON: None available FINDINGS: No intracranial hemorrhage, mass effect or CT evidence of large vascular territory acute infarct. The ventricles are within limits and midline. Age commensurate chronic and involutional changes. Hands external to the head holding the head in place. 3.1 x 2.6 cm lobular right medial periorbital/orbital appearing soft tissue mass with a punctate area of calcification for example axial 7, correlate with history. The visualized paranasal sinuses, mastoids and left orbit appear within limits. TMJ degenerative changes. Bilateral parasellar carotid calcification. CT/Brain/Head without Contrast IMPRESSION: No intracranial hemorrhage, mass effect or CT evidence of large vascular territ ory acute infarct. Age commensurate chronic and involutional changes. 3.1 x 2.6 cm lobular right medial periorbital/orbital appearing soft tissue mas s with a punctate area of calcification for example axial 7, correlate with history. Reading Location: [id number]
[2024-09-03 00:12] LABS: Absolute Lymphocyte Count 1.81 X10^3/uL (0.83-4.51); Absolute Neutrophil Count 3.3 X10^3/uL (2.0-7.7); Basophil# 0.05 X10^3/uL; Basophil% 0.8 % (0-1); Eosinophil# 0.43 X10^3/uL; Eosinophils% 6.8 % (0-5); Hemoglobin 12.2 g/dL (12.0-15.0); Lymphocyte # 1.81 X10^3/ul (0.83-4.51); Lymphocyte % 28.6 % (19-41); Mean Corp Hgb Conc 32.1 g/dL (32-36); Mean Corpuscular Hgb 29.8 pg (27.0-32.0); Mean Corpuscular Volume 92.7 fL (81-99); Mean Platelet Vol. 11.9 fl (6.2-12.0); Monocyte# 0.69 X10^3/uL; Monocyte% 10.9 % (0-10); NRBC Flagged by Analyzer 0 % (0-5); Neutrophil # 3.34 X10^3/uL (2.7-7.7); Neutrophil % 52.7 % (47-70); Platelet Count 164 K/mm3 (150-450); Prothrombin Time (Protime)PT. 13.5 SECONDS (11.7-14.9); RBC Distribution Width CV 15.6 % (11.6-14.6); RBC Distribution Width SD 53.1 fl (35.1-43.9); White Blood Count 6.3 K/mm3 (4.4-11.0)
[2024-09-03 00:13] LABS: Partial Thromboplast Time 29.9 Seconds (24.1-36.2)
[2024-09-03 01:34] LABS: Troponin T High Sens 2 HR 13 ng/L (<=14)
== END 2024-09-03 02:35 | disposition home or self-care (01) ==
PROVIDERS: Emergency Provider Emergency Medicine; PCP Family Medicine; Visit Provider Emergency Medicine
DX: R40.4 Transient alteration of awareness (principal); F03.90 Unspecified dementia, unspecified severity, without behavioral disturbance, psychotic disturbance, mood disturbance, and anxiety; R63.4 Abnormal weight loss; Z85.840 Personal history of malignant neoplasm of eye; Z85.828 Personal history of other malignant neoplasm of skin; E03.9 Hypothyroidism, unspecified; Z79.890 Hormone replacement therapy
CPT/HCPCS: 70450; 71045; 80053; 81001; 83605; 84484; 85025; 85610; 85730; 93005; 96360; 99285; P9612; A4216